=== PATIENT | male | born 1965 | race Caucasian/White ===

== ENCOUNTER 2022-10-30 15:42 | Outpatient (CLI) | payer OTHER, SELFPAY ==
--- NOTE | 2022-10-30 16:00 | CRLHL7_ITS ---
For Patients: As a result of the Century Cures Act, medical imaging exams and procedure reports are released immediately into your electronic medical record. You may view this report before your referring provider. If you have questions, please contact your health care provider. INDICATION: Evaluate for liver mass TECHNIQUE: Ultrasound abdomen limited. Sonographic images of the right upper quadrant were obtained using remy-scale and color Doppler images. COMPARISON: None FINDINGS: Liver: Normal in size with a dense and coarse echotexture. No masses. No intrahepatic biliary dilatation. Gallbladder: No stones or sludge. Gallbladder wall thickening up to 4 millimeters. No pericholecystic fluid. Common bile duct: 3 mm. Pancreas: Suboptimally visualized. 1.7 centimeter cyst. Right kidney: 12.4 cm. Normal echotexture and cortex. No masses, stones, or hydronephrosis. Vasculature: Proximal abdominal aorta and IVC are normal. IMPRESSION: Coarse liver parenchyma. No liver masses or perihepatic fluid. Gallbladder wall thickening up to 4 millimeters. Normal common bile duct. Dictated by Topher Villafana MD @ 10/30/2022 5:35:09 PM (Electronically Signed)
== END 2022-10-30 15:43 | disposition home or self-care (01) ==
LOC: US 15:42
PROVIDERS: PCP Internal Medicine; Visit Provider Internal Medicine
DX: R16.0 Hepatomegaly, not elsewhere classified (principal)
CPT/HCPCS: 76705

== ENCOUNTER 2023-06-19 07:20 | Outpatient (CLI) | payer OTHER, SELFPAY | END 2023-06-19 07:21 | disposition home or self-care (01) | LOC: NFLDREF 06-26 14:59 | PROVIDERS: PCP Internal Medicine; Referring Provider Internal Medicine; Visit Provider Internal Medicine | DX: Z13.220 Encounter for screening for lipoid disorders (principal); K70.30 Alcoholic cirrhosis of liver without ascites; E11.9 Type 2 diabetes mellitus without complications; Z12.5 Encounter for screening for malignant neoplasm of prostate | CPT/HCPCS: 80061; 80076; G0103 ==

== ENCOUNTER 2023-08-22 07:01 | Outpatient (CLI) | payer OTHER, SELFPAY ==
--- NOTE | 2023-08-22 07:15 | US_ITS ---
Patient: [facility] Facility:?[facility] Patient ID:?[id number] Site Patient ID:?[id number]. Site :?[id number] Study:?US-Abdomen RUQ-08/22/2023 7:56:06 AM Ordering Physician:ADE HOANG Final Report: INDICATION: Alcoholic cirrhosis. Hepatocellular carcinoma screening. TECHNIQUE: Conventional two-dimensional remy-scale ultrasound of the right upper quadrant as well color-flow and pulsed Doppler of the portal vein. COMPARISON: None. FINDINGS: A cirrhotic liver is demonstrated. A 1.8 x 1.7 x 1.2 cm hypoechoic nodule is demonstrated in the right hepatic lobe. The portal vein is enlarged to 1.5 cm in diameter, and there is hepatopetal portal vein flow. No ascites evident. The gallbladder is normal with no evidence of stones. No bile duct dilation is evident. The common bile duct measures 5 mm in diameter. The pancreatic body is grossly negative. The pancreatic head and tail are suboptimally visualized. The right kidney is unremarkable except for a 1.8 cm parenchymal cyst. IMPRESSION: 1. Cirrhotic liver with 1.8 cm hypoechoic right lobe nodule. Further evaluation with MRI recommended. 2. Portal vein enlarged to 1.5 cm in diameter, suggesting portal venous hypertension. Hepatopetal portal vein flow demonstrated. 3. Normal gallbladder and bile ducts. 4. Pancreatic body grossly negative. Pancreatic head and tail suboptimally visualized. Dictated by Pepe Zendejas MD @ 08/22/2023 2:19:48 PM Signed by:?Pepe Zendejas MD @08/22/2023 2:19:48 PM (Electronic Signature)
== END 2023-08-22 07:02 | disposition home or self-care (01) ==
LOC: US 07:02
PROVIDERS: PCP Internal Medicine; Visit Provider Internal Medicine
DX: K70.30 Alcoholic cirrhosis of liver without ascites (principal)
CPT/HCPCS: 76705

== ENCOUNTER 2023-09-03 07:00 | Outpatient (CLI) | payer OTHER, SELFPAY ==
--- OUTSIDE RECORDS SUMMARY | 2023-09-03 07:02 | XMS_ITS | Clinical Summary ---
Author Name Unknown Organization [facility] Address [place], [place] [address] Care Team Providers Care Transplant Nurse Name Role Phone Alpa Salvador MD Primary Care Provider +1- [phone] Allergies No known active allergies Medications Medication Sig Dispensed Refills Start Date End Date Status oxybutynin XL (DITROPAN XL) 5 mg CR tabletIndications:Uri nary urgency Take 1 tablet by mouth once daily. 30 tablet 11 08/28/2016 Active Active Problems Problem Noted Date Diagnosed Date Urinary urgency 08/28/2016 Social History Tobacco Use Types Packs/Day Years Used Date Smoking Tobacco: Never Assessed Sex and Gender Information Value Date Recorded Sex Assigned at Not on file Gender Identity Not on file Sexual Orientation Not on file Obstetrics History Last Filed Vital Signs Vital Sign Reading Time Taken Comments Blood Pressure 161/93 10/02/2016 2:26 PM CDT Pulse 73 10/02/2016 2:26 PM CDT Temperature 37.1 ??C (98.7 ??F) 08/28/2016 3:51 PM CD T Respiratory Rate - - Oxygen Saturation 97% 10/02/2016 2:26 PM CDT Inhaled Oxygen Concentration - - Weight 110.4 kg (243 lb 6.4 oz) 10/02/2016 2:26 PM CDT Height - - Body Mass Index - - Plan of Treatment Health Maintenance Due Date Last Done Comments Tdap 11/30/1975 Depression screening for age 12+ 1976 HIV for age 15-65 11/30/1979 BMI (ht and wt on same day) for age 18+ 1982 Hepatitis C screening for ag e 18-79 1982 Tetanus booster 1984 Colonoscopy through age 75 2009 Lipids for age 45-75 2009 Zoster (shingles) series for age 50+ (1 of 2) 2014 COVID-19 vaccine series (2022-24 season) 2022 Influenza for age 50-64 12/28/2023 Pneumococcal series for age 6-64 Aged Out No longer eligible based on patient's age to complete this topic Care Teams Transplant Nurse Relationship Specialty Start Date End Date Alpa Salvador MD [address] [place] [address] PCP - General Internal Medicine 07/08/16
--- NOTE | 2023-09-03 07:15 | MR_ITS ---
Patient: AMY D [facility] III Facility:?[facility] Patient ID:?[id number] Site Patient ID:?[id number]. Site :?[id number] Study:?MRI-Abdomen W/ and W/O Cont 20 CC DOATERM LIVER-09/03/2023 9:13:53 AM Ordering Physician:?AFSHAN HOANG Final Report: INDICATION: Cirrhosis TECHNIQUE: Multiplanar imaging of the abdomen was performed without and with 20 cc of Dotarem contrast material IV. COMPARISON: Right upper quadrant ultrasound 08/22/2023 FINDINGS: A cirrhotic, mildly fatty liver is demonstrated. No diffusion restriction or abnormal contrast enhancement is demonstrated in the liver. Several small liver cysts are noted. The bile ducts are normal in caliber. The portal vein is patent and demonstrates no filling defect. The portal vein is enlarged to 1.6 cm in diameter. A small recanalized umbilical vein is demonstrated. The spleen is negative. No ascites demonstrated. The adrenal glands and pancreas are within normal limits. The kidneys are unremarkable except for a 1 cm right renal parenchymal cyst. No lymphadenopathy is apparent. No intrinsic bowel abnormality is evident. IMPRESSION: 1. Cirrhotic, mildly fatty liver without evidence of hepatocellular carcinoma. Several small liver cysts noted. 2. Portal venous hypertension manifested does portal vein enlargement to 1.6 cm and small recanalized umbilical vein. Dictated by Pepe Zendejas MD @ 09/04/2023 8:41:47 AM Signed by:?Pepe Zendejas MD @09/04/2023 8:41:47 AM (Electronic Signature)
== END 2023-09-03 07:01 | disposition home or self-care (01) ==
LOC: MRI 07:01
PROVIDERS: PCP Internal Medicine; Visit Provider Internal Medicine
DX: K74.60 Unspecified cirrhosis of liver (principal); K76.89 Other specified diseases of liver; K76.0 Fatty (change of) liver, not elsewhere classified
CPT/HCPCS: 74183; A9575

== ENCOUNTER 2023-12-02 15:20 | Outpatient (CLI) | payer OTHER, SELFPAY ==
--- OUTSIDE RECORDS SUMMARY | 2023-12-02 15:22 | XMS_ITS | Clinical Summary ---
Author Organization [facility] Address [place], [place] [address] Care Team Providers Care Web Publisher Name Role Phone Alpa Salvador MD Primary Care Provider +1- [phone] Allergies No known active allergies Medications Medication [...] age to complete this topic Care Teams Web Publisher Relationship Specialty Start Date End Date Alpa Salvador MD [address] [place] [address] PCP - General Internal Medicine 07/08/16
--- NOTE | 2023-12-02 15:30 | CRLHL7_ITS ---
For Patients: As a result of the Century Cures Act, medical imaging exams and procedure reports are released immediately into your electronic medical record. You may view this report before your referring provider. If you have questions, please contact your health care provider. INDICATION: Right shoulder pain. Skin anesthesia. COMPARISON: None. TECHNIQUE: Sagittal T1, T2, and STIR sequences. Axial T2/gradient sequences. FINDINGS: Straightening of the normal cervical lordosis which may be secondary to muscle spasm or patient positioning. Otherwise, normal vertebral body and facet alignment. No fractures. No vertebral body loss of height. No spondylolisthesis. No ligamentous injury. Normal marrow signal. No suspicious osseous lesions. Normal cord signal. No intradural mass or lesion. C1-2: No spinal canal narrowing. C2-3: Mild disc generation posted disc bulge. No narrowing of spinal canal. No neural foraminal narrowing. C3-4: Mild disc degeneration. No narrowing of spinal canal. Mild narrowing of bilateral foramina. C4-5: Disc generation posted disc bulge. No narrowing of spinal canal. Moderate right and mild left neural foraminal narrowing. C5-6: Disc degeneration. Mild narrowing of spinal canal. Moderate narrowing of bilateral foramina. C6-7: Disc generation posted disc bulge. Mild narrowing of the spinal canal. Moderate severe narrowing of bilateral foramina. Potential impingement of the C7 nerve roots. C7-T1: Posterior disc bulge. No neural foraminal narrowing. No spinal canal neural foramina narrowing in the visualized upper thoracic spine. IMPRESSION: 1. Straightening of the normal cervical lordosis. 2. Otherwise, normal alignment. No fractures. 3. Normal cord signal. 4. At C3-4, mild narrowing of the bilateral neural foramina 5. At C4-5, moderate right and mild left neural foraminal narrowing. 6. At C5-6, moderate narrowing of the bilateral neural foramina 7. At C6-7, moderate to severe narrowing of the bilateral neural foramina. Potential impingement of the C7 nerve roots Dictated by Fabio Olivo MD @ 12/04/2023 7:51:55 AM (Electronically Signed)
== END 2023-12-02 15:21 | disposition home or self-care (01) ==
LOC: MRI 15:21
PROVIDERS: PCP Internal Medicine; Visit Provider Internal Medicine
DX: M25.511 Pain in right shoulder (principal); R20.0 Anesthesia of skin; M50.21 Other cervical disc displacement, high cervical region; M50.222 Other cervical disc displacement at C5-C6 level; M50.223 Other cervical disc displacement at C6-C7 level
CPT/HCPCS: 72141

== ENCOUNTER 2024-03-08 07:04 | Outpatient (CLI) | payer OTHER, SELFPAY ==
--- OUTSIDE RECORDS SUMMARY | 2024-03-08 07:09 | XMS_ITS | Clinical Summary ---
Author Organization [facility] Address [place], [place] [address] Care Team Providers Care Route Service Manager Name Role Phone Alpa Salvador MD Primary Care Provider +1- [phone] Allergies No known active allergies Medications Medication [...] (1 of 2) 2014 COVID-19 vaccine series (2023- season) 2023 Influenza for age 50-64 12/28/2023 Pneumococcal series for age 6-64 Aged Out No longer eligible based on patient's age to complete this topic Care Teams Route Service Manager Relationship Specialty Start Date End Date Alpa Salvador MD [address] [place] [address] PCP - General Internal Medicine 07/08/16
--- NOTE | 2024-03-08 07:15 | CRLHL7_ITS ---
For Patients: As a result of the Century Cures Act, medical imaging exams and procedure reports are released immediately into your electronic medical record. You may view this report before your referring provider. If you have questions, please contact your health care provider. INDICATION: Cirrhotic liver without ascites TECHNIQUE: Conventional two-dimensional grayscale ultrasound of the right upper quadrant. COMPARISON: Abdomen MRI of 09/03/2023 and right upper quadrant ultrasound of 08/22/2023 FINDINGS: A cirrhotic liver is again demonstrated. In the right hepatic lobe is a 2.5 x 2.2 x 1.7 cm hypoechoic nodule which on the previous ultrasound was measured at 1.8 x 1.7 x 1.2 cm. No corresponding abnormality was identified on the interval MRI. No ascites evident. The gallbladder is normal, with no evidence of stones. No gallbladder wall thickening or pericholecystic fluid is demonstrated. The patient is reportedly not tender over the gallbladder. No biliary ductal dilation is evident. The common bile duct measures 3 mm. The pancreas is within normal limits. A 1.3 cm right renal cyst is again noted. The visualized portion of the abdominal aorta and inferior vena cava are negative. IMPRESSION: Cirrhotic liver with 2.5 x 2.2 x 1.7 cm hypoechoic nodule in the right hepatic lobe, increased from 1.8 x 1.7 x 1.2 cm on the ultrasound examination of 08/22/2023. This is concerning for an enlarging hepatocellular carcinoma but no corresponding abnormality was identified on the interval MRI. Consider repeat MRI. Dictated by Pepe Zendejas MD @ 03/08/2024 11:08:10 AM (Electronically Signed)
== END 2024-03-08 07:05 | disposition home or self-care (01) ==
LOC: US 07:07
PROVIDERS: PCP Internal Medicine; Visit Provider Internal Medicine
DX: K70.30 Alcoholic cirrhosis of liver without ascites (principal)
CPT/HCPCS: 76705

== ENCOUNTER 2024-03-19 14:18 | Outpatient (CLI) | payer OTHER, SELFPAY ==
--- OUTSIDE RECORDS SUMMARY | 2024-03-19 14:20 | XMS_ITS | Clinical Summary ---
Author Organization [employer] [facility] Address [place], [place] [address] Care Team Providers Care Sample Cutter Name Role Phone Alpa Salvador MD Primary Care Provider +1- [phone] Allergies No known active allergies Medications Medication [...] 72 10/02/2016 2:26 PM CDT Temperature 37.1 C (98.7 F) 08/28/2016 3:51 PM CDT Respiratory Rate - - Oxygen Saturation 97% [...] (1 of 2) 2014 COVID-19 vaccine series (2023-25 season) 2023 Influenza for age 50-64 12/28/2023 Pneumococcal series for age 6-64 Aged Out No longer eligible based on patient's age to complete this topic Care Teams Sample Cutter Relationship Specialty Start Date End Date Alpa Salvador MD [address] [place] [address] PCP - General Internal Medicine 07/08/16
--- NOTE | 2024-03-19 14:30 | CRLHL7_ITS ---
For Patients: As a result of the Century Cures Act, medical imaging exams and procedure reports are released immediately into your electronic medical record. You may view this report before your referring provider. If you have questions, please contact your health care provider. INDICATION: Hepatomegaly. Cirrhosis. COMPARISON: Abdominal MRI dated 03 Sep 2023. Technique : Abdominal MRI with T1 in and out of phase, T2, diffusion weighted, and progressively delayed post-contrast images. Intravenous gadolinium administered. Findings : Minimal diffuse fatty infiltration of the liver. Nodularity of the liver representing cirrhosis. A few tiny cysts in the liver. No other focal liver lesions identified. No focal abnormalities identified in the visualized portions of the spleen, pancreas, and adrenal glands. 9 mm cyst in the superior pole of the right kidney. The kidneys are otherwise unremarkable. No hydronephrosis. Portosystemic shunt formation with small esophageal varices. No adenopathy. Impression : 1. Cirrhosis. 2. No suspicious liver lesions identified. Dictated by Howie Mckeon MD @ 03/22/2024 5:34:53 PM (Electronically Signed)
== END 2024-03-19 14:19 | disposition home or self-care (01) ==
LOC: MRI 14:19
PROVIDERS: PCP Internal Medicine; Visit Provider Internal Medicine
DX: R16.0 Hepatomegaly, not elsewhere classified (principal); K74.60 Unspecified cirrhosis of liver; K76.0 Fatty (change of) liver, not elsewhere classified; N28.1 Cyst of kidney, acquired
CPT/HCPCS: 74183; A9575

== ENCOUNTER 2024-04-12 08:59 | Outpatient (CLI) | payer OTHER, SELFPAY | END 2024-04-12 09:00 | disposition home or self-care (01) | PROVIDERS: PCP Internal Medicine; Visit Provider Internal Medicine | DX: Z12.5 Encounter for screening for malignant neoplasm of prostate (principal) | CPT/HCPCS: 80053; 85610; G0103 ==

== ENCOUNTER 2025-01-04 08:05 | Outpatient (CLI) | payer OTHER, SELFPAY | END 2025-01-04 08:06 | disposition home or self-care (01) | LOC: NFLDREF 01-07 17:51 | PROVIDERS: PCP Internal Medicine; Referring Provider Internal Medicine; Visit Provider Internal Medicine | DX: K70.30 Alcoholic cirrhosis of liver without ascites (principal); R73.03 Prediabetes; Z12.5 Encounter for screening for malignant neoplasm of prostate | CPT/HCPCS: 80053; G0103 ==

== ENCOUNTER 2025-01-18 07:04 | Outpatient (CLI) | payer OTHER, SELFPAY ==
--- NOTE | 2025-01-18 07:15 | CRLHL7_ITS ---
For Patients: As a result of the Century Cures Act, medical imaging exams and procedure reports are released immediately into your electronic medical record. You may view this report before your referring provider. If you have questions, please contact your health care provider. INDICATION: ALCOHOLIC CIRRHOSIS COMPARISON: MRI 03/19/2024, ultrasound 03/08/2024 TECHNIQUE: Real time remy scale imaging and color Doppler analysis was performed of the right upper quadrant. FINDINGS: Liver echotexture is diffusely coarsened. Liver has a nodular contour. Hypoechoic mass in the right hepatic lobe measures 4.3 x 2.9 x 3.9 cm, increased compared to the prior study. Previously, this measured 2.5 cm. Delfin hepatis lymph node measures 1.5 cm. Liver measures 19.6 cm. There is no evidence of ascites. The gallbladder is of normal size and there is no evidence of intraluminal stones or sludge. The gallbladder wall measures 2 mm in thickness. The common bile duct is of normal size and measures 5 mm in diameter at the level of the delfin hepatis. The pancreas appears normal. There is no evidence of a stone or hydronephrosis within the right kidney. The right kidney measures 13.0 cm in length. Simple cyst right kidney measures 2.0 x 1.3 x 1.3 cm. IMPRESSION: Cirrhotic liver with hepatomegaly. Enlarging hypoechoic solid mass right hepatic lobe now measures 4.3 cm. No ascites. Enlarged delfin hepatis lymph node measures 1.5 cm. Normal gallbladder. Incidental simple cyst right kidney. Dictated by Topher Orellana MD @ 01/18/2025 3:22:32 PM (Electronically Signed)
== END 2025-01-18 07:05 | disposition home or self-care (01) ==
PROVIDERS: PCP Internal Medicine; Visit Provider Internal Medicine
DX: K70.30 Alcoholic cirrhosis of liver without ascites (principal); N28.1 Cyst of kidney, acquired; R59.0 Localized enlarged lymph nodes
CPT/HCPCS: 76705

== ENCOUNTER 2025-03-09 08:45 | Outpatient (CLI) | payer OTHER, SELFPAY | END 2025-03-09 08:46 | disposition home or self-care (01) | PROVIDERS: PCP Internal Medicine; Visit Provider Family Medicine | DX: K70.30 Alcoholic cirrhosis of liver without ascites (principal); Z01.818 Encounter for other preprocedural examination | CPT/HCPCS: 80053; 85610 ==

== ENCOUNTER 2025-04-01 13:38 | Outpatient (CLI) | payer OTHER, SELFPAY | END 2025-04-01 13:39 | disposition home or self-care (01) | LOC: NFLDREF 04-07 14:48 | PROVIDERS: PCP Internal Medicine; Referring Provider Internal Medicine; Visit Provider Internal Medicine | DX: C22.0 Liver cell carcinoma (principal) | CPT/HCPCS: 80053; 82105 ==

== ENCOUNTER 2025-04-08 08:06 | Outpatient (CLI) | payer OTHER, SELFPAY ==
--- NOTE | 2025-04-08 08:00 | CRLHL7_ITS ---
For Patients: As a result of the Century Cures Act, medical imaging exams and procedure reports are released immediately into your electronic medical record. You may view this report before your referring provider. If you have questions, please contact your health care provider. Indication: Hepatocellular carcinoma Technique: CT Chest/Abd/Pelvis w/ 106cc [id number] intravenous contrast Please note that all CT scans at this facility use dose modulation, iterative reconstruction, and/or weight-based dosing when appropriate to reduce radiation dose to as low as reasonably achievable. Comparison: MRI 03/19/2024, ultrasound 01/18/2025 Findings: In the chest, visualized thyroid is within normal limits. Anterior mediastinal lymph node measures 1 cm. No hiatal hernia. Sub cm mediastinal lymph nodes elsewhere. Normal axillary lymph nodes. No hilar adenopathy. No infiltrate, edema, effusion or pneumothorax. No pulmonary nodules. In the abdomen, there is a slightly hyperdense circumscribed mass within the right hepatic lobe, segment 8, measuring 3.3 x 3.7 cm similar to the recent ultrasound. Stable sub cm cyst left hepatic lobe and right hepatic lobe. Cirrhotic morphology of the liver spleen measures 13 cm. Adrenal glands normal. No hydronephrosis. Simple cyst right kidney measures 1.5 cm. Atherosclerotic changes. No adrenal nodule. Pancreas is within normal limits. Gallbladder is normal. No biliary obstruction. Upper abdominal retroperitoneal adenopathy, measuring up to 1.8 cm, not significantly changed since the prior MRI. Varices are similar. No ascites. Postop changes to the lower abdominal wall. No recurrent hernia. In the pelvis, the bladder is normal. No pelvic fluid collection. Sigmoid diverticulosis. No diverticulitis. No bowel obstruction. No free air. No abscess. No pelvic sidewall or inguinal adenopathy. Degenerative changes lower lumbar spine. No vertebral body compression fracture. Impression: Enhancing segment 8 intrahepatic mass measuring 3.7 cm. Retroperitoneal adenopathy. Mildly prominent anterior mediastinal lymph node. Cirrhotic liver with splenomegaly and varices. No ascites. No suspicious pulmonary nodule. Please note that all CT scans at this facility use dose modulation, iterative reconstruction, and/or weight-based dosing when appropriate to reduce radiation dose to as low as reasonably achievable. Dictated by Topher Orellana MD @ 04/08/2025 11:02:20 AM (Electronically Signed)
== END 2025-04-08 08:07 | disposition home or self-care (01) ==
LOC: CT 08:07
PROVIDERS: PCP Internal Medicine; Visit Provider Internal Medicine
DX: C22.0 Liver cell carcinoma (principal); K74.60 Unspecified cirrhosis of liver; R16.0 Hepatomegaly, not elsewhere classified
CPT/HCPCS: 71260; 74177; Q9967

== ENCOUNTER 2025-04-14 08:49 | Outpatient (CLI) | payer OTHER, SELFPAY ==
--- NOTE | 2025-04-14 08:15 | CRLHL7_ITS ---
For Patients: As a result of the Century Cures Act, medical imaging exams and procedure reports are released immediately into your electronic medical record. You may view this report before your referring provider. If you have questions, please contact your health care provider. INDICATION: Hepatocellular carcinoma. COMPARISON: Abdominal MRIs dated 19 March 2024 and 03 Sep 2023. TECHNIQUE: Abdominal MRI with T1 in- and out of phase, T2, diffusion weighted, and progressively delayed post-contrast images. Intravenous gadolinium administered. FINDINGS: Mild diffuse fatty infiltration of the liver. Nodularity of the liver representing cirrhosis. 3.3 x 2.7 cm lesion in the posterior aspect of segment 8 the liver shows arterial enhancement with non peripheral washout. Scattered small areas of arterial enhancement measuring up to 9 mm show no washout. A few small cysts in the liver. No focal abnormalities identified in the visualized portions of the spleen, pancreas, and adrenal glands. 9 mm cyst in the superior pole of the right kidney. The kidneys are otherwise unremarkable. No hydronephrosis. Small esophageal varices. No adenopathy. Impression : 1. Cirrhosis. 2. 3.3 cm lesion in segment 8 of the liver shows arterial enhancement with non peripheral washout. LI-RADS 5. Recommend gastroenterology consultation. 3. Scattered small areas of arterial enhancement in the liver show no washout. LI-RADS 3. Dictated by Hwoie Mckeon MD @ 04/17/2025 7:04:31 AM (Electronically Signed)
== END 2025-04-14 08:50 | disposition home or self-care (01) ==
LOC: MRI 08:49
PROVIDERS: PCP Internal Medicine; Visit Provider Internal Medicine
DX: C22.0 Liver cell carcinoma (principal); K74.60 Unspecified cirrhosis of liver; K76.0 Fatty (change of) liver, not elsewhere classified; K76.89 Other specified diseases of liver; N28.1 Cyst of kidney, acquired; I85.00 Esophageal varices without bleeding
CPT/HCPCS: 74183; A9575